=== PATIENT | male | born 2000 | race Caucasian/White ===

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

== ENCOUNTER 2020-03-02 00:48 | Emergency (ER) | payer BC ==
[2019-12-19 00:45] VITALS: BP 146/85
[~2020-03-02] VITALS: Ht 182.9 cm; Wt 97.7 kg
== END 2020-03-02 02:05 | disposition left against medical advice (07) ==
LOC: ED 00:48
DX: S01.112A Laceration without foreign body of left eyelid and periocular area, initial encounter (principal); S05.12XA Contusion of eyeball and orbital tissues, left eye, initial encounter; F10.129 Alcohol abuse with intoxication, unspecified; W01.198A Fall on same level from slipping, tripping and stumbling with subsequent striking against other object, initial encounter

== ENCOUNTER → 2020-12-18 | Outpatient (CLI) | payer BC | LOC: RAD 12:34 | DX: R68.89 Other general symptoms and signs (principal); R10.30 Lower abdominal pain, unspecified | CPT/HCPCS: Q9967 ==

== ENCOUNTER → 2020-12-19 | Outpatient (CLI) | payer BC ==
[2020-12-19 16:12] LABS: HEMATOCRIT 49.5 % (36.0-47.0); MEAN CELL VOLUME 85 fl (78-95); MEAN CORPUSCULAR HEMOGLOBIN 28 pg (26-32); MEAN CORPUSCULAR HGB CONC 32 g/dL (33-37); MEAN PLATELET VOLUME 9.6 fl (7.4-10.4); PLATELET COUNT 329 K/mm3 (130-400); RED BLOOD COUNT 5.81 M/mm3 (4.20-5.60); RED CELL DISTRIBUTION WIDTH 13.1 % (11.5-14.5); WHITE BLOOD COUNT 12.7 K/mm3 (4.8-10.8)
[2020-12-19 17:08] LABS: URINE APPEARANCE CLEAR; URINE COLOR YELLOW; URINE PROTEIN(semi-quant) TRACE mg/dL (NEGATIVE)
[2020-12-19 17:09] LABS: URINE BILIRUBIN NEGATIVE (NEGATIVE); URINE BLOOD TRACE (NEGATIVE); URINE GLUCOSE NEGATIVE (NEGATIVE); URINE KETONE TR (NEGATIVE); URINE LEUKOCYTE ESTERASE NEGATIVE (NEGATIVE); URINE NITRATE NEGATIVE (NEGATIVE); URINE UROBILINOGEN NORMAL (NORMAL)
[2020-12-19 17:10] LABS: URINE WBC 0-1 /hpf (0-3)
[2020-12-19 17:28] LABS: BASO # 0.03 (0.02-0.10); EOS # 0.12 (0.04-0.40); MONO # 0.61 (0.20-0.80); NEU # 9.75 (1.40-6.50)
[2020-12-19 17:39] LABS: ALBUMIN 4.9 g/dL (3.5-5.0); POTASSIUM 3.9 mmol/L (3.5-5.1)
[2020-12-19 17:40] LABS: CALCIUM 10.4 mg/dL (8.3-10.5)
[2020-12-19 17:41] LABS: TOTAL PROTEIN 7.9 g/dL (6.4-8.3)
[2020-12-19 17:43] LABS: TOTAL BILIRUBIN 1.5 mg/dL (0.2-1.2)
[2020-12-19 17:48] LABS: MAGNESIUM 1.8 mg/dL (1.70-2.20)
== END ==
LOC: LAB 16:01
PROVIDERS: Family Medicine
DX: M62.81 Muscle weakness (generalized) (principal)

== ENCOUNTER → 2022-07-17 | Outpatient (CLI) | payer OTHER | LOC: RAD 12:28 | DX: R10.32 Left lower quadrant pain (principal); Z80.0 Family history of malignant neoplasm of digestive organs ==